=== PATIENT | female | born 1945 | race Asian ===

== ENCOUNTER 2018-10-11 16:08 | Emergency (ER) | payer SELFPAY ==
[~2018-10-11] VITALS: Ht 167.6 cm; Wt 50.3 kg
[2018-10-11 16:14] VITALS: Ht 167.6 cm; Wt 50.3 kg
[2018-10-11] MEDS ORDERED: KETOROLAC 30 MG INJ IM STA (18:20)
[2018-10-11] MEDS ORDERED: NAPR-985 PO (18:23)
[2018-10-11] MEDS ORDERED: IBUP-1542 PO (18:23)
[2018-10-11] MEDS ORDERED: DEXAMETHASONE 10 MG/ML 1 ML INJ IM ONE (18:30)
--- NOTE | 2018-10-11 18:56 | ERD ---
ER Documentation Chief Complaint Chief Complaint Complains of right knee pain since this HPI 73-year-old female past medical history of hypertension,angina pectoris, GERD who presents with complaint of right knee pain. Patient states that around 11 AM this morning she feels extending her right leg to stand on a chair and felt something pop. Since that time is had swelling to the medial aspect of the right knee as well as difficulty ambulating secondary to pain. She denies any previous history of injury to affected limb. Denies any paresthesias or weakness to right lower extremity. She denies any other injuries and did not fall. Is visiting from the [facility]. She otherwise is without complaint. ROS All systems reviewed and are negative except as per history of present illness. Medications Home Meds Active Scripts Ibuprofen* (Motrin*) 600 Mg Tab, 600 MG PO Q6, #30 TAB Prov:ANMOL DAVID PA-C 10/11/18 Naproxen* (Naprosyn*) 500 Mg Tablet, 500 MG PO BID PRN for PAIN AND/OR INFLAMMATION, #30 TAB Prov:ANMOL DAVID PA-C 10/11/18 PMhx/Soc Hx Alcohol Use: No Hx Substance Use: No Hx Tobacco Use: No FmHx Family History: No diabetes, No coronary disease, No other Physical Exam Vitals Vital Signs Date Temp Pulse Resp B/P (MAP) Pulse Ox O2 O2 Flow FiO2 Time Delivery Rate 10/11/18 98.1 71 18 182/67 99 Room Air 20:11 (105) 10/11/18 97.6 79 20 184/76 95 16:14 (112) Physical Exam Const: No acute distress Head: Atraumatic Eyes: Normal Conjunctiva ENT: Normal External Ears, Nose and Mouth. Neck: Full range of motion. No meningismus. Resp: Clear to auscultation bilaterally Cardio: Regular rate and rhythm, no murmurs Abd: Soft, non tender, non distended. Normal bowel sounds Skin: No petechiae or rashes Back: No midline or flank tenderness Ext: No cyanosis, right knee with some edema medial aspect, pain with flexion but no pain with extension, no areas of bruising or laceration No pain at head if fibula No isolated patellar tenderness Able to flex knee > 90 degrees Ability to walk 4 weight bearing steps both immediately and in ED Able to transfer weight twice onto each lower limb Sensation intact to light touch. 2+ DP pulses. Neur: Awake and alert Psych: Normal Mood and Affect Results 24 hrs Current Medications Medications Dose Sig/Martha Start Time Status Last (Trade) Ordered Route PRN Stop Time Admin Dose Reason Admin Ketorolac 30 mg ONCE STAT 10/11/18 DC 10/11/18 Tromethamine IM 18:20 10/11/18 18:28 (Toradol) 18:22 10 mg ONCE ONCE 10/11/18 DC 10/11/18 Dexamethasone IM 18:30 10/11/18 18:28 (Decadron) 18:31 Procedures/MDM 73-year-old female presents with right knee pain.. Likely musculoskeletal in nature of likely strain of right knee. Low suspicion for underlying fracture. Advised patient that if her symptoms do not improve in 1 to 2 weeks with appropriate pain medications and anti-inflammatories that she will need to follow-up with her PMD for further evaluation and care possible imaging. Patient expressing understanding. Symptoms improved in ER with Toradol. X-ray of right knee without acute fracture. DISPOSITION PLAN: We discussed follow up with the patient's primary care doctor within 24 to 48 hours. Patient counseled regarding my diagnostic impression and care plan. Prior to discharge all questions answered. Pt agrees with treatment plan and understands strict return precautions. Precautionary instructions provided including instructions to return to the ER if not improving or for any worsening or changing symptoms or concerns. Disclaimer: Inadvertent spelling and grammatical errors are likely due to EHR/dictation software use and do not reflect on the overall quality of patient care. Also, please note that the electronic time recorded on this note does not necessarily reflect the actual time of the patient encounter. Departure Diagnosis: Primary Impression: Knee pain Additional Impression: Knee injury Condition: Stable Patient Instructions: Knee Sprain Referrals: COMMUNITY CLINICS YOU HAVE RECEIVED A MEDICAL SCREENING EXAM AND THE RESULTS INDICATE THAT YOU DO NOT HAVE A CONDITION THAT REQUIRES URGENT TREATMENT IN THE EMERGENCY DEPARTMENT. FURTHER EVALUATION AND TREATMENT OF YOUR CONDITION CAN WAIT UNTIL YOU ARE SEEN IN YOUR DOCTORS OFFICE WITHIN THE NEXT 1-2 DAYS. IT IS YOUR RESPONSIBILITY TO MAKE AN APPOINTMENT FOR FOLOW-UP CARE. IF YOU HAVE A PRIMARY DOCTOR --you should call your primary doctor and schedule an appointment IF YOU DO NOT HAVE A PRIMARY DOCTOR YOU CAN CALL OUR PHYSICIAN REFERRAL HOTLINE AT IF YOU CAN NOT AFFORD TO SEE A PHYSICIAN YOU CAN CHOSE FROM THE FOLLOWING [facility] [address] [facility] [address] [facility] [address] [facility] [address] [facility]. [facility] [address] [facility]. [facility] [address] Additional Instructions: Call your primary care doctor TOMORROW for an appointment during the next 2-3 days.See the doctor sooner or return here if your condition worsens before your appointment time. Comments Patient evaluated with PA, agree with assessment and plan. ANMOL Rodriguez PA-C October 11, 2018 18:56 JOSEPH YOUNG DO October 12, 2018 20:15
--- NOTE | 2018-10-11 19:44 | EN ---
Date/Time of Note Date/Time of Note DATE: 10/11/18 TIME: 19:40 ER Progress Note This patient was a sign out from RAFFY Garcia. patient in no acute distress. Low suspicion for life-threatening medical emergency. Low suspicion for orthopedic emergency that requires hospitalization or immediate surgical intervention. Low suspicion for neurovascular emergency requires hospitalization or immediate surgical intervention. Otherwise healthy patient presenting with constellation of symptoms likely representing uncomplicated joint effusion as characterized by history, physical exam findings, imaging findings. IMPRESSION: 1. Minimal spurring off the posterior patella. 2. Trace suprapatellar joint effusion. R Physician Won No respiratory distress, otherwise relatively well appearing and nontoxic. patient reassessment includes decrease in pain. X-ray results reviewed. Larry wrap applied before discharge. Disposition given. Patient educated on diagnoses, prescriptions, follow-up care, return precautions. Strict return precautions given for worsening condition; questions answered discharge. Disposition for discharge with followup in 2 days with PCP/clinic. Disposition Home. Patient condition stable. TORREY SIMON NP October 11, 2018 19:44
[2018-10-11 20:11] VITALS: BP 182/67; PULSE 71; RESP 18
== END 2018-10-11 20:14 | disposition home or self-care (01) ==
LOC: FTE 16:08
DX: S89.91XA Unspecified injury of right lower leg, initial encounter (principal); I10 Essential (primary) hypertension; X50.1XXA Overexertion from prolonged static or awkward postures, initial encounter; Y92.9 Unspecified place or not applicable
CPT/HCPCS: 73562; 96372; 99284; J1100; J1885

== ENCOUNTER 2018-12-10 20:29 | Emergency (ER) | payer SELFPAY ==
[~2018-12-10] VITALS: Ht 149.9 cm; Wt 53.0 kg
[~2018-12-10 20:29] MED LIST: IBUP-1542 PO; NAPR-985 PO
[2018-12-10 21:16] VITALS: Ht 149.9 cm; Wt 53.0 kg
[2018-12-10] MEDS ORDERED: LIDOCAINE/MYLANTA 40 ML BTL PO STA (21:56)
[2018-12-10] MEDS ORDERED: DICYCLOMINE 10 MG CAP PO ONE (22:00)
--- NOTE | 2018-12-10 22:23 | ERD ---
ER Documentation Chief Complaint Chief Complaint C/O WORSENING RT UPPER ABDOMINAL PAIN RADIATING TO RT LOWER ABD X3 DAYS HPI 73-year-old female presenting with right upper abdominal pain that has been going on for 3 days. The pain is intermittent, described as "bloating". Sometimes radiates to the lower abdomen. She has not had any associated nausea, vomiting, fever, chills, diarrhea, or constipation. No hematochezia or melena. No alleviating or exacerbating factors. She has a remote history of cholecystectomy. She is denying any dysuria or hematuria. ROS All systems reviewed and are negative except as per history of present illness. Medications Home Meds Active Scripts Ibuprofen* (Motrin*) 600 Mg Tab, 600 MG PO Q6, #30 TAB Prov:ANMOL DAVID PA-C 10/11/18 Naproxen* (Naprosyn*) 500 Mg Tablet, 500 MG PO BID PRN for PAIN AND/OR INFLAMMATION, #30 TAB Prov:ANMOL DAVID PA-C 10/11/18 Allergies Allergies: Coded Allergies: No Known Allergy (Unverified , 12/10/18) PMhx/Soc History of Surgery: Yes (csection x2, CHOLECYSTECOMY) Anesthesia Reaction: No Hx Neurological Disorder: No Hx Respiratory Disorders: No Hx Cardiac Disorders: Yes (htn, angina pectoris) Hx Psychiatric Problems: No Hx Miscellaneous Medical Probl: Yes (gastritis) Hx Alcohol Use: No Hx Substance Use: No Hx Tobacco Use: No Smoking Status: Never smoker FmHx Family History: No diabetes Physical Exam Vitals Vital Signs Date Temp Pulse Resp B/P (MAP) Pulse Ox O2 O2 Flow FiO2 Time Delivery Rate 12/10/18 73 18 104/89 100 Room Air 22:43 (94) 12/10/18 97.9 71 21 197/83 99 21:16 (121) Physical Exam Const: No acute distress Head: Atraumatic Eyes: Normal Conjunctiva ENT: Normal External Ears, Nose and Mouth. Neck: Full range of motion. No meningismus. Resp: Clear to auscultation bilaterally Cardio: Regular rate and rhythm, no murmurs. 2+ distal pulses in all 4 extremities Abd: Soft, non tender, non distended. no McBurney's point tenderness. No hepatomegaly. Normal bowel sounds Skin: No petechiae or rashes Back: No midline or flank tenderness Ext: No cyanosis, or edema Neur: Awake and alert Psych: Normal Mood and Affect Result Diagram: 12/10/18215012/10/182150 Results 24 hrs Laboratory Tests Test 12/10/18 21:51 White Blood Count 7.8 10^3/ul Red Blood Count 4.36 10^6/ul Hemoglobin 12.7 g/dl Hematocrit 38.4 % Mean Corpuscular Volume 88.1 fl Mean Corpuscular Hemoglobin 29.1 pg Mean Corpuscular Hemoglobin Concent 33.1 g/dl Red Cell Distribution Width 12.9 % Platelet Count 195 10^3/UL Mean Platelet Volume 11.1 fl Immature Granulocytes % 0.500 % Neutrophils % 45.4 % Lymphocytes % 41.8 % Monocytes % 6.3 % Eosinophils % 5.0 % Basophils % 1.0 % Nucleated Red Blood Cells % 0.0 /100WBC Immature Granulocytes # 0.040 10^3/ul Neutrophils # 3.5 10^3/ul Lymphocytes # 3.3 10^3/ul Monocytes # 0.5 10^3/ul Eosinophils # 0.4 10^3/ul Basophils # 0.1 10^3/ul Nucleated Red Blood Cells # 0.0 10^3/ul Urine Color YELLOW Urine Clarity CLEAR Urine pH 5.0 Urine Specific [place] 1.021 Urine Ketones NEGATIVE mg/dL Urine Nitrite NEGATIVE mg/dL Urine Bilirubin NEGATIVE mg/dL Urine Urobilinogen NEGATIVE mg/dL Urine Leukocyte Esterase 1+ Pauline/ul Urine Microscopic RBC 5 /HPF Urine Microscopic WBC 17 /HPF Urine Hemoglobin 1+ mg/dL Urine Glucose NEGATIVE mg/dL Urine Total Protein NEGATIVE mg/dl Sodium Level 140 mmol/L Potassium Level 3.9 mmol/L Chloride Level 104 mmol/L Carbon Dioxide Level 29 mmol/L Anion Gap 7 Blood Urea Nitrogen 20 mg/dl Creatinine 0.60 mg/dl Est Glomerular Filtrat Rate mL/min mL/min Glucose Level 121 mg/dl Calcium Level 9.4 mg/dl Total Bilirubin 0.7 mg/dl Direct Bilirubin 0.00 mg/dl Indirect Bilirubin 0.7 mg/dl Aspartate Amino Transf (AST/SGOT) 36 IU/L Alanine Aminotransferase (ALT/SGPT) 35 IU/L Alkaline Phosphatase 57 IU/L Total Protein 7.6 g/dl Albumin 4.5 g/dl Globulin 3.10 g/dl Albumin/Globulin Ratio 1.45 Lipase 231 U/L Current Medications Medications Dose Sig/Martha Start Time Status Last (Trade) Ordered Route PRN Stop Time Admin Dose Reason Admin 40 ml ONCE STAT 12/10/18 DC 12/10/18 Miscellaneous PO 21:56 12/10/18 22:14 Medication 21:57 (Gi Cocktail (2)) Simethicone 160 mg ONCE ONCE 12/10/18 DC 12/10/18 (Mylicon) PO 22:00 12/10/18 22:16 22:01 Dicyclomine 10 mg ONCE ONCE 12/10/18 DC 12/10/18 HCl PO 22:00 12/10/18 22:14 (Bentyl) 22:01 Procedures/MDM EMERGENT LABS AND DIAGNOSTIC STUDIES: Lab Results above were reviewed and interpreted by me. CBC: no anemia or evidence of infection CMP: No evidence of clinically significant electrolyte abnormality, acidosis, renal failure, hypoglycemia, liver disease, or biliary obstruction Lipase: no evidence of pancreatitis UA: 1+ LE, 17 WBCs Initial Nursing notes reviewed. Previous Medical Records requested via the Electronic Health Record. EMERGENCY DEPARTMENT COURSE / MEDICAL DECISION MAKING: Is presenting with intermittent right upper quadrant pain. Differential includes but is not limited to pancreatitis, hepatitis, lower lobe pneumonia, gastritis, colitis, cardiac pathology, aortic dissection, ureterolithiasis, pyelonephritis. Labs were ordered to evaluate for above and were normal. I have a low suspicion for acute surgical abdomen or serious pathology. I suspect the patient is likely suffering from gas and bloating. She was treated with simethicone and Bentyl. Upon reevaluation, patient feels much better. I feel she is stable for discharge with strict return precautions. Follow-up with PCP recommended tomorrow if her pain continues. If she has any worsening symptoms, advised to return to the ER for reevaluation. Patient's blood pressure was elevated (>120/80) but appears stable without evidence of hypertensive emergency or urgency. The patient was counseled about the risks of hypertension and urged to pursue outpatient monitoring and therapy within a week with their primary care physician. Departure Diagnosis: Primary Impression: Abdominal pain Abdominal location: right upper quadrant Qualified Codes: R10.11 - Right upper quadrant pain Condition: Stable EKSHARDA MERCEDES MD Dec 10, 2018 22:23
[2018-12-10 22:43] VITALS: BP 104/89; PULSE 73; RESP 18
== END 2018-12-10 23:19 | disposition home or self-care (01) ==
LOC: E/R 20:29
DX: R10.11 Right upper quadrant pain (principal); I10 Essential (primary) hypertension
CPT/HCPCS: 36415; 80053; 81001; 83690; 85025; 99283